=== PATIENT | male | born 1965 | race American Indian/Alaskan Native ===

== ENCOUNTER 2017-08-18 08:07 | Day surgery (SDC) | payer BC ==
[2017-08-17 09:22] VITALS: BMI 27.2
[2017-08-18] MEDS ORDERED: Propofol 10 mg/ml Inj (20 ML) ONE ×2 (09:41)
[2017-08-18] MEDS ORDERED: Midazolam 2 MG/2 ML VIAL ONE ×2 (09:42→10:06)
[2017-08-18 11:59] VITALS: TEMP 97
[2017-08-18 12:00] VITALS: O2SAT 99
[2017-08-18 12:10] VITALS: BP 140/92; PULSE 95; RESP 20
== END 2017-08-18 11:30 | disposition home or self-care (01) ==
LOC: C.ENDO 08:07
PROVIDERS: ATTEND Internal Medicine Gastroenterology
DX: Z12.11 Encounter for screening for malignant neoplasm of colon (principal); D12.4 Benign neoplasm of descending colon; I10 Essential (primary) hypertension; D86.9 Sarcoidosis, unspecified; K64.8 Other hemorrhoids
CPT/HCPCS: 45385; 88305; J2001; J2250; J2704